=== PATIENT | male | born 1980 | race Caucasian/White ===

== ENCOUNTER 2017-08-26 16:26 | Emergency (ER) | payer SELFPAY ==
--- NOTE | 2017-08-26 18:51 | RAD ---
EXAM DESCRIPTION: Shoulder,Right 2 or More Views CLINICAL HISTORY: 37 years Male, pain COMPARISON: August 30, 2014 FINDINGS: No fracture or dislocation. Soft tissues are unremarkable. IMPRESSION: No acute abnormality. Electronically signed by: Mainor Luciano MD 08/26/2017 6:49 PM CDT
[2017-08-26] MEDS ORDERED: KETOROLAC TROMETHAMINE INJ 30 MG/ML VIAL IM ONE (18:52)
--- NOTE | 2017-08-26 20:55 | ED.PDOC ---
History of Present Illness - General Chief Complaint: Upper Extremity Injury Stated Complaint: right shoulder pain Time Seen by Provider: 08/26/17 20:45 Source: patient Exam Limitations: no limitations Additional Information: PT WAS WORKING IN THE [employer] WHEN HE FELT A POP IN HIS R SHOULDER. C/O PAIN WHICH PROGRESSED. WAS ABLE TO FINISH WORKING BUT C/O DIFFUSE PAIN OVER THE SHOULDER AREA. - History of Present Illness Occurred: this morning Pain - Upper Extremity: moderate: Shoulder, right Improving Factors: nothing Worsening Factors: movement Allergies/Adverse Reactions: Allergies NO KNOWN ALLERGY Allergy (Unverified 08/18/12 08:11) Home Medications: Ambulatory Orders Acetaminophen W/ Codeine [Acetaminophen/Codeine 300-30 mg] 1 - 2 tab PO Q6-8H PRN #30 tab 08/30/14 Cyclobenzaprine HCl [Flexeril] 10 mg PO TID PRN #15 tab 08/26/17 Indomethacin 50 mg PO TID PRN #14 cap 08/26/17 Review of Systems - Review of Systems Constitutional: Denies: chills, fever Respiratory: Denies: cough, short of breath Cardiology: Denies: chest pain, palpitations Musculoskeletal: Denies: back pain, neck pain Skin: States: no symptoms reported. Denies: change in color Neurological: Denies: numbness, paresthesia, tingling, weakness Endocrine: States: no symptoms reported Hematologic/Lymphatic: States: no symptoms reported Past Medical History (General) - Patient Medical History Hx Seizures: No Hx Stroke: No Hx Dementia: No Hx Asthma: No Hx Cardiac Disorders: No Hx Congestive Heart Failure: No Hx Pacemaker: No Hx Hypertension: No Hx Thyroid Disease: No Hx Diabetes: No Hx Gastroesophageal Reflux: No Hx MRSA: Yes - Foot 2007, Skin 2009 Surgical History: no surgical history - Vaccination History Hx Tetanus, Diphtheria Vaccination: Yes - Social History Hx Alcohol Use: Yes - Female History Patient : No Family Medical History - Family History Father Family History: No Known Living Status: Still Living Physical Exam - Physical Exam General Appearance: Alert, No apparent distress Eyes, Ears, Nose, Throat Exam: PERRL/EOMI, normal ENT inspection Neck: non-tender, full range of motion, supple Back Exam: normal inspection, no vertebral tenderness Shoulder Exam: normal inspection, no evidence of injury - DIFFUSE TTP POST ASPECT AND ANT ASPECT, NO AC TTP, NVI, FREE ROM. Elbow/Forearm Exam: normal inspection, non-tender, no evidence of injury, normal ROM Wrist Exam: normal inspection, non-tender, no evidence of injury DTR: 2+: Biceps, left, Biceps, right, Triceps, left, Triceps, right Neuro/Tendon: normal sensation, normal motor functions Mental Status: alert Skin Exam: normal color, warm/dry Departure - Departure Clinical Impression: Contusion, shoulder /upper arm Time of Disposition: 20:54 Disposition: Discharge to Home or Self Care Condition: Excellent Departure Forms: ED Discharge - Pt. Copy, Patient Portal Self Enrollment Instructions: Contusion, DI for Arm Pain Referrals: LAURE AGUILAR IV, AZURE ARCHITECT [Primary Care Provider] - 1-2 Weeks Prescriptions: Cyclobenzaprine HCl [Flexeril] 10 mg PO TID PRN #15 tab PRN Reason: Pain Indomethacin 50 mg PO TID PRN #14 cap PRN Reason: Pain Home Medications: Ambulatory Orders Acetaminophen W/ Codeine [Acetaminophen/Codeine 300-30 mg] 1 - 2 tab PO Q6-8H PRN #30 tab 08/30/14 Cyclobenzaprine HCl [Flexeril] 10 mg PO TID PRN #15 tab 08/26/17 Indomethacin 50 mg PO TID PRN #14 cap 08/26/17
[2017-08-26 21:02] VITALS: BP 112/80; TEMP 98.8; O2SAT 98
== END 2017-08-26 21:02 | disposition home or self-care (01) ==
LOC: ER 16:26
DX: S40.019A Contusion of unspecified shoulder, initial encounter (principal); X58.XXXA Exposure to other specified factors, initial encounter; Y92.9 Unspecified place or not applicable

== ENCOUNTER 2017-09-07 06:23 | Emergency (ER) | payer SELFPAY ==
[2017-09-07 06:40] VITALS: BP 105/71; TEMP 97.3; O2SAT 98
[2017-09-07] MEDS ORDERED: KETOROLAC TROMETHAMINE INJ 30 MG/ML VIAL IM ONE (06:54)
--- NOTE | 2017-09-07 06:58 | ED.PDOC ---
History of Present Illness - General Chief Complaint: Back Pain or Injury Stated Complaint: lower left back pain Time Seen by Provider: 09/07/17 06:41 Source: patient Exam Limitations: no limitations - History of Present Illness Initial Comments: Patient presents with new onset low back pain. He woke up in the past hour with the pain. It is midlumbar with radiation to the right lower back. Sharp in nature, intermittent, no particular timing nor context, denies previous episodes , worse with movement, better with rest, denies associated symptoms. Denies urinary symptoms. No history of nephrolithiasis. Timing/Duration: 1-3 hours Severity: moderate Improving Factors: rest Worsening Factors: movement Associated Symptoms: denies symptoms Allergies/Adverse Reactions: Allergies NO KNOWN ALLERGY Allergy (Verified 09/07/17 06:39) Home Medications: Ambulatory Orders Acetaminophen W/ Codeine [Acetaminophen/Codeine 300-30 mg] 1 - 2 tab PO Q6-8H PRN #30 tab 08/30/14 Cyclobenzaprine HCl [Flexeril] 10 mg PO TID PRN #15 tab 08/26/17 Indomethacin 50 mg PO TID PRN #14 cap 08/26/17 Cyclobenzaprine HCl [Flexeril] 10 mg PO TID PRN #20 tab 09/07/17 Ketorolac Tromethamine [Toradol Tabs] 10 mg PO Q6HR #16 tab 09/07/17 Review of Systems - Review of Systems Constitutional: States: no symptoms reported EENTM: States: no symptoms reported Respiratory: States: no symptoms reported Cardiology: States: no symptoms reported Gastrointestinal/Abdominal: States: no symptoms reported Genitourinary: States: no symptoms reported Musculoskeletal: States: see HPI Skin: States: no symptoms reported Neurological: States: no symptoms reported Endocrine: States: no symptoms reported Hematologic/Lymphatic: States: no symptoms reported Past Medical History (General) - Patient Medical History Hx Seizures: No Hx Stroke: No Hx Dementia: No Hx Asthma: No Hx of COPD: No Hx Cardiac Disorders: No Hx Congestive Heart Failure: No Hx Pacemaker: No Hx Hypertension: No Hx Thyroid Disease: No Hx Diabetes: No Hx Gastroesophageal Reflux: No Hx Renal Disease: No Hx Cancer: No Hx of HIV: No Hx Hepatitis C: No Hx MRSA: Yes - Foot 2007, Skin 2009 Surgical History: no surgical history - Vaccination History Hx Tetanus, Diphtheria Vaccination: Yes - Social History Hx Tobacco Use: Yes Hx Alcohol Use: Yes - Female History Patient : No Family Medical History - Family History Father Family History: No Known Living Status: Still Living Physical Exam - Physical Exam General Appearance: Alert Respiratory: lungs clear, normal breath sounds Cardiovascular/Chest: normal peripheral pulses, regular rate, rhythm, no edema Gastrointestinal/Abdominal: normal bowel sounds, non tender Back Exam: other - TTP over midlumbar area, mild TTP in right quadraus lumborum , straight leg raise positive at 15 degrees, cross leg raise positive at 45 degrees, pain with heel walking/back flexion/torso rotation. Neurologic: no motor/sensory deficits Progress - Progress Progress: 09/07/17 07:00 Toradol 30 mg IM x one. Care instructions given. Patient told not to take Flexeril before work, driving, or dangerous activity, questions were elicited and answered, patient voiced understanding and agreement with the plan. RX for Toradol and Flexeril given. Departure - Departure Clinical Impression: Low back pain Disposition: Discharge to Home or Self Care Condition: Good Departure Forms: ED Discharge - Pt. Copy, Patient Portal Self Enrollment Diet: other - as per your regular doctor Referrals: LAURE AGUILAR IV MECHANICAL SHOVEL OPERATOR [Primary Care Provider] - 1-2 Weeks Prescriptions: Ketorolac Tromethamine [Toradol Tabs] 10 mg PO Q6HR #16 tab Cyclobenzaprine HCl [Flexeril] 10 mg PO TID PRN #20 tab PRN Reason: Pain Home Medications: Ambulatory Orders Acetaminophen W/ Codeine [Acetaminophen/Codeine 300-30 mg] 1 - 2 tab PO Q6-8H PRN #30 tab 08/30/14 Cyclobenzaprine HCl [Flexeril] 10 mg PO TID PRN #15 tab 08/26/17 Indomethacin 50 mg PO TID PRN #14 cap 08/26/17 Cyclobenzaprine HCl [Flexeril] 10 mg PO TID PRN #20 tab 09/07/17 Ketorolac Tromethamine [Toradol Tabs] 10 mg PO Q6HR #16 tab 09/07/17 Additional Instructions: Return to activity as tolerated. See your regular doctor in three days if no improvement. See your regular doctor if pain is not gone in 4-6 weeks. Ice the area three times per day for 3 days then change to heat twice per day until healed. Return to the [facility] for worsening pain. Do not work, drive, or do dangerous activity after taking Flexeril.
== END 2017-09-07 07:10 | disposition home or self-care (01) ==
LOC: ER 06:23
DX: M54.5 Low back pain (principal); Z87.891 Personal history of nicotine dependence

== ENCOUNTER 2017-12-08 07:47 | Emergency (ER) | payer SELFPAY ==
[2017-12-08 07:59] VITALS: TEMP 97
--- NOTE | 2017-12-08 08:02 | ED.PDOC ---
History of Present Illness - General Chief Complaint: General Stated Complaint: right sided rib pain, cough nausea Time Seen by Provider: 12/08/17 07:58 Source: patient Exam Limitations: no limitations - History of Present Illness Initial Comments: Eddie Harris 37 y/o male stated that he felt nauseated then thew up several time since 3 days ago and had been hoarse the last 2 days and unable to get anything down the last 2 days but able to eat yesterday. Denies chronic medical problem.Denies fever ,chills Timing/Duration: other - see hpi Severity: moderate Improving Factors: nothing Worsening Factors: eating Associated Symptoms: other - see hpi Allergies/Adverse Reactions: Allergies NO KNOWN ALLERGY Allergy (Verified 12/08/17 07:55) Home Medications: Ambulatory Orders Ondansetron [Zofran Odt] 4 mg PO Q8HRS PRN #10 tab 12/08/17 Review of Systems - Review of Systems Constitutional: States: no symptoms reported EENTM: States: see HPI Respiratory: States: see HPI Cardiology: States: no symptoms reported Gastrointestinal/Abdominal: States: see HPI Genitourinary: States: no symptoms reported Musculoskeletal: States: no symptoms reported Skin: States: no symptoms reported Neurological: States: no symptoms reported Past Medical History (General) - Patient Medical History Hx Seizures: No Hx Stroke: No Hx Dementia: No Hx Asthma: No Hx of COPD: No Hx Cardiac Disorders: No Hx Congestive Heart Failure: No Hx Pacemaker: No Hx Hypertension: No Hx Thyroid Disease: No Hx Diabetes: No Hx Gastroesophageal Reflux: No Hx Renal Disease: No Hx Cancer: No Hx of HIV: No Hx Hepatitis C: No Hx MRSA: Yes - Foot 2008, Skin 2009 Surgical History: no surgical history - Vaccination History Hx Tetanus, Diphtheria Vaccination: Yes - Social History Hx Tobacco Use: Yes Hx Alcohol Use: Yes Hx Physical Abuse: No Hx Emotional Abuse: No - Female History Patient : No Family Medical History - Family History Father Family History: No Known Living Status: Still Living Physical Exam - Physical Exam General Appearance: Alert, Comfortable, No apparent distress Eye Exam: bilateral normal Ears, Nose, Throat: hearing grossly normal, normal ENT inspection, normal pharynx Neck: non-tender, full range of motion, supple Respiratory: lungs clear, normal breath sounds, no respiratory distress Cardiovascular/Chest: normal peripheral pulses, regular rate, rhythm, no murmur Peripheral Pulses: radial,right: 2+, radial,left: 2+ Gastrointestinal/Abdominal: normal bowel sounds, non tender, soft, no organomegaly Back Exam: normal inspection, no CVA tenderness, no vertebral tenderness Extremity: normal range of motion, non-tender, no pedal edema, no calf tenderness Neurologic: no motor/sensory deficits, alert, oriented x 3 Skin Exam: normal color, warm/dry Lymphatic: no adenopathy Progress - Progress Progress: 12/08/17 08:07 Vital Signs - 8 hr 12/08/17 07:56 Temperature 97 F L Pulse Rate [ 71 Left Radial] Respiratory 18 Rate Blood Pressure 121/75 [Left Arm] O2 Sat by Pulse 97 Oximetry - Results/Orders Results/Orders: Laboratory Results - last 24 hr 12/08/17 12/08/17 12/08/17 08:17 08:17 08:17 WBC 9.4 RBC 5.23 Hgb 17.1 Hct 48.4 MCV 92.5 MCH 32.6 H MCHC 35.2 RDW 13.7 Plt Count 296 MPV 7.8 Absolute Neuts (auto) 5.00 Absolute Lymphs (auto) 3.00 Absolute Monos (auto) 0.90 H Absolute Eos (auto) 0.40 Absolute Basos (auto) 0.10 Neutrophils % 52.9 Lymphocytes % 32.0 Monocytes % 9.3 H Eosinophils % 4.7 Basophils % 1.1 Sodium 137 Potassium 4.1 Chloride 102 Carbon Dioxide 28 Anion Gap 11.1 L BUN 8 Creatinine 0.88 BUN/Creatinine Ratio 9.1 L Random Glucose 92 Serum Osmolality 271.8 L Lactic Acid 1.1 Calcium 9.1 Total Bilirubin 0.5 AST 21 ALT 24 Alkaline Phosphatase 79 Serum Total Protein 7.6 Albumin 4.0 Globulin 3.6 H Albumin/Globulin Ratio 1.1 Lipase 28 - EKG/XRAY/CT XRAY: chest - calcified lymph node /nodule Departure - Departure Clinical Impression: Laryngitis acute, spasmodic Nausea & vomiting Qualifiers: Vomiting type: unspecified Vomiting Intractability: non-intractable Qualified Code(s): R11.2 - Nausea with vomiting, unspecified Time of Disposition: 09:29 Disposition: Discharge to Home or Self Care Condition: Fair Departure Forms: ED Discharge - Pt. Copy, Patient Portal Self Enrollment Instructions: Nausea and Vomiting, Adult (DC), Nausea and Vomiting, Adult, Laryngitis (DC), Laryngitis Diet: other - avoid greasy and spicy foods;small frequent meals Referrals: LAURE AGUILAR IV, SOCIAL SCIENCE ANALYST [Primary Care Provider] - 1-2 Weeks Prescriptions: Ondansetron [Zofran Odt] 4 mg PO Q8HRS PRN #10 tab PRN Reason: Nausea Home Medications: Ambulatory Orders Ondansetron [Zofran Odt] 4 mg PO Q8HRS PRN #10 tab 12/08/17 Additional Instructions: Follow up with your primary Md 09 December 2017
[2017-12-08] MEDS ORDERED: PROMETHAZINE HCL INJ 25 MG/ML VIAL IM ONE (08:08)
[2017-12-08] MEDS ORDERED: LACTATED RINGERS 1,000 ML IVS ONE (08:08)
[2017-12-08] MEDS ORDERED: DEXAMETHASONE INJ 4 MG/ML VIAL IV ONE (08:08)
[2017-12-08] MEDS ORDERED: PANTOPRAZOLE SODIUM IV 40 MG VIAL IV ONE (08:10)
--- NOTE | 2017-12-08 09:11 | RAD ---
EXAM DESCRIPTION: Chest,1 View CLINICAL HISTORY: cough COMPARISON: February 03, 2012 IMPRESSION: Single AP portable upright view of the chest shows cardiac silhouette and pulmonary vasculature to be within normal limits. Lungs are normally aerated and clear. There is a 4 mm calcified pulmonary nodule in the left mid lung field. Calcified lymph nodes in the left hilum are again seen consistent with old granulomatous disease. No obvious pleural effusion or pneumothorax is seen. Electronically signed by: Liam Baum MD 12/08/2017 9:10 AM CDT
[2017-12-08 09:37] VITALS: BP 104/60; O2SAT 96
== END 2017-12-08 09:40 | disposition home or self-care (01) ==
LOC: ER 07:47
DX: J04.0 Acute laryngitis (principal); R11.2 Nausea with vomiting, unspecified; Z87.891 Personal history of nicotine dependence
CPT/HCPCS: 36415; 71045; 80053; 83605; 83690; 85025; J1100; J2550; J7120

== ENCOUNTER 2020-07-07 19:55 | Emergency (ER) | payer BC ==
[2020-07-07 19:59] VITALS: TEMP 97.9; O2SAT 98
--- NOTE | 2020-07-07 20:01 | ED.PDOC ---
History of Present Illness - General Chief Complaint: ENT Problem Stated Complaint: food stuck in throat Time Seen by Provider: 07/07/20 20:01 - History of Present Illness Initial Comments: Patient complains of having a foreign body sensation deep in his esophagus in the middle of his chest onset shortly prior to admission while eating chicken soup. Chicken was soft and did not appear to have a bone in it. He is unable to swallow liquids. Is not been vomiting or having any difficulty breathing or chest pain other than mild discomfort. Patient denies any cough or upper respiratory symptoms or difficulty breathing. He has had a similar episode in the past which required endoscopic removal of the impacted foreign body. He is now under the care of a radio repairer domestic. Timing/Duration: 1/2 hour Severity: severe Improving Factors: nothing Worsening Factors: nothing Associated Symptoms: denies symptoms Allergies/Adverse Reactions: Allergies NO KNOWN ALLERGY Allergy (Verified 07/07/20 19:59) Home Medications: Ambulatory Orders NK 07/07/20 Review of Systems - Review of Systems Constitutional: States: no symptoms reported EENTM: States: no symptoms reported Respiratory: States: no symptoms reported Cardiology: States: no symptoms reported Gastrointestinal/Abdominal: States: see HPI Genitourinary: States: no symptoms reported Musculoskeletal: States: no symptoms reported Skin: States: no symptoms reported Neurological: States: no symptoms reported Endocrine: States: no symptoms reported Hematologic/Lymphatic: States: no symptoms reported Past Medical History (General) - Patient Medical History Hx Seizures: No Hx Stroke: No Hx Dementia: No Hx Asthma: No Hx of COPD: No Hx Cardiac Disorders: No Hx Congestive Heart Failure: No Hx Pacemaker: No Hx Hypertension: No Hx Thyroid Disease: No Hx Diabetes: No Hx Gastroesophageal Reflux: No Hx Renal Disease: No Hx Cancer: No Hx of HIV: No Hx Hepatitis C: No Hx MRSA: No Surgical History: no surgical history - Vaccination History Hx Tetanus, Diphtheria Vaccination: Yes Hx Influenza Vaccination: No Hx Pneumococcal Vaccination: No - Social History Hx Tobacco Use: Yes Hx Chewing Tobacco Use: No Hx Alcohol Use: Yes Hx Substance Use: No Hx Substance Use Treatment: No Hx Depression: No Hx Physical Abuse: No Hx Emotional Abuse: No Hx Suspected Abuse: No - Female History Patient : No Family Medical History - Family History Father Family History: No Known Living Status: Still Living Hx Family Asthma: No Hx Family Congestive Heart Failure: No Physical Exam - Physical Exam General Appearance: Alert, Comfortable Eye Exam: bilateral normal Ears, Nose, Throat: normal ENT inspection, normal pharynx Neck: non-tender, full range of motion, supple, other - No palpable tenderness swelling or masses Respiratory: lungs clear, normal breath sounds Cardiovascular/Chest: regular rate, rhythm Gastrointestinal/Abdominal: normal bowel sounds, non tender, soft, other - Patient unable to swallow water, regurgitates after several ounces swalloed Back Exam: normal inspection Extremity: normal range of motion Neurologic: lead refinery supervisor II-XII nml as tested Skin Exam: normal color Lymphatic: no adenopathy Progress - Progress Progress: 07/07/20 20:28 IV glucagon 1 mg given but the foreign body was not dislodged and the patient still could not swallow liquids. At the present time no continues to fall, and the roads are icy and dangerous to drive in the dark. Disposition and treatment were discussed in detail with the patient and his . They would prefer to drive to the emergency room in [facility] in [place] tomorrow midmorning in the daylight when the roads are safer for passage. Patient will return to the emergency department here for any acutely worsening symptoms. 07/07/20 20:58 Departure - Departure Clinical Impression: Impacted esophageal foreign body Time of Disposition: 20:30 Disposition: Discharge to Home or Self Care Condition: Good Departure Forms: ED Discharge - Pt. Copy, Patient Portal Self Enrollment Instructions: DI for Ear Pain-Adult Diet: other - Take nothing by mouth unless you feel the impaction has cleared. In that case you may try clear liquids to see if they pass or not. Referrals: HUMBERTO BASURTO [Primary Care Provider] - 1-2 Weeks Home Medications: Ambulatory Orders NK 07/07/20 Additional Instructions: Tomorrow morning go directly to the emergency department at [facility] in [place] for evaluation by a radio repairer domestic. In the meantime if you develop difficulty breathing, fever, severe pain in your chest with breathing then return to our emergency department immediately.
[2020-07-07] MEDS ORDERED: SODIUM CHLORIDE 0.9% 250ML 250 ML IVS ONE (20:02)
[2020-07-07] MEDS ORDERED: GLUCAGON INJ 1 MG VIAL IV ONE (20:02)
[2020-07-07 20:36] VITALS: BP 130/82
== END 2020-07-07 20:37 | disposition home or self-care (01) ==
LOC: ER 19:55
DX: T18.128A Food in esophagus causing other injury, initial encounter (principal); Z87.891 Personal history of nicotine dependence; X58.XXXA Exposure to other specified factors, initial encounter; Y92.9 Unspecified place or not applicable; Z87.19 Personal history of other diseases of the digestive system